=== PATIENT | female | born 1985 | race Caucasian/White ===

== ENCOUNTER 2016-03-03 19:09 | Emergency (ER) | payer MEDICAID ==
[~2016-03-03] VITALS: Ht 162.5 cm; Wt 52.2 kg
[~2016-03-03 19:09] MED LIST: AMOXIL500 MG PO; ANAPROX DS550 MG PO; ATIVAN0.5 MG PO; BACTRIM DS 8001 TA1 PO; CATAFLAM50 MG PO; CIPRO250 MG PO; CIPROFLOXACIN500 MG PO; DAYPRO600 M1 PO; DECADRON4 MG PO; DOXYCYCLINE MO100 MG PO; FLAGYL500 MG PO; FLEXERIL5 MG PO; HYDROCODONE BIT1 T11 PO; MAXARON FORTE1 CAP PO; MOTRIN600 MG PO; MOTRIN800 MG PO; NAPROSYN500 MG PO; NKHM; OVRAL-21 50 MCG1 TAB PO; PERCOCET 325 MG1 TA6 PO; PREDNICOT20 MG PO; PRENATAL1 TA1 PO; PYRIDIUM200 MG PO; REGLAN10 MG PO; ROBAXIN750 MG PO; SEPTRA DS 800 M1 TAB PO; TORADOL10 MG PO; TRAMADOL HCL50 MG PO; ULTRACET 325 MG1 TA2 PO; VICODIN 5/500 505 MG PO; VICODIN ES 7501 TAB PO; ZANTAC150 MG PO; ZITHROMAX Z PA250 MG PO; ZOFRAN ODT4 MG PO; Zofran4 MG PO
[2016-03-03 21:04] LABS: BASO % 0.8 % (0.0-1.0); EOS # 0.2 10*3/uL (0.0-0.4); EOS % 4.1 % (1.0-4.0); HEMATOCRIT 43.2 % (37.0-47.0); HEMOGLOBIN 14.7 g/dl (12.0-16.0); LYMPH # 1.7 10*3/uL (1.3-4.4); LYMPH % 31.4 % (27.0-41.0); MEAN CELL VOLUME 92.1 fl (81.0-99.0); MEAN CORPUSCULAR HGB 31.3 pg (27.0-31.0); MEAN PLATELET VOLUME 11.1 fl (9.6-12.3); MONO # 0.6 10*3/uL (0.1-1.0); MONO % 11.5 % (3.0-9.0); NEUT # 2.8 10*3/uL (2.3-7.9); NEUT % 51.8 % (47.0-73.0); PLATELET COUNT AUTOMATED 209 10*3/uL (130-400); RED BLOOD COUNT 4.69 10*6/uL (4.10-5.10); RED CELL DISTRI WIDTH 11.9 % (0-14.5); WHITE BLOOD COUNT 5.3 10*3/uL (4.8-10.8)
[2016-03-03 21:20] LABS: ALBUMIN 3.6 gm/dl (3.1-4.5); ALKALINE PHOSPHATASE 103 U/L (45-117); BILIRUBIN, TOTAL 0.4 mg/dl (0.2-1.0); BUN 10 mg/dl (7-24); CARBON DIOXIDE 29 mmol/L (21-32); CHLORIDE 106 mmol/L (98-107); EST GLOM FILT AFRICAN AMERICAN > 60 ml/min; GLUCOSE 100 mg/dL (65-99); POTASSIUM 3.9 mmol/L (3.5-5.1); SGOT/AST 11 IU/L (3-35); SGPT/ALT 20 U/L (12-78); SODIUM 143 mmol/L (136-145)
[2016-03-03 23:36] LABS: BILIRUBIN NEGATIVE (NEGATIVE); BLOOD NEGATIVE (NEGATIVE); CLARITY SL CLOUDY (CLEAR); COLOR YELLOW (YELLOW); GLUCOSE NEGATIVE (NEGATIVE); KETONE NEGATIVE (NEGATIVE); LEUKO ESTERASE NEGATIVE (NEGATIVE); NITRITE NEGATIVE (NEGATIVE); PROTEIN NEGATIVE (NEGATIVE)
[2016-03-03 23:47] LABS: BACTERIA 2+; RBC 0-2 rbc/hpf (0-2); URINE REFLEX COMMENT YES (NO)
[2016-03-04] MEDS ORDERED: LOMOTIL 0.025 M1 TA1 PO (00:04)
== END 2016-03-04 00:27 | disposition home or self-care (01) ==
LOC: ED 19:09
PROVIDERS: Emergency Medicine
DX: K52.9 Noninfective gastroenteritis and colitis, unspecified (principal); F17.200 Nicotine dependence, unspecified, uncomplicated; F41.9 Anxiety disorder, unspecified; Z98.51 Tubal ligation status

== ENCOUNTER 2016-11-06 19:13 | Emergency (ER) | payer OTHER ==
[~2016-11-06] VITALS: Ht 162.5 cm; Wt 61.2 kg
[~2016-11-06 19:13] MED LIST changes: +LOMOTIL 0.025 M1 TA1 PO
[2016-11-06] MEDS ORDERED: CEFADROXIL500 M1 PO (21:02)
[2016-11-06] MEDS ORDERED: IBUPROFEN600 MG PO (21:02)
== END 2016-11-06 21:10 | disposition home or self-care (01) ==
LOC: ED 19:13
DX: S80.12XA Contusion of left lower leg, initial encounter (principal); L08.9 Local infection of the skin and subcutaneous tissue, unspecified; F17.200 Nicotine dependence, unspecified, uncomplicated; X58.XXXA Exposure to other specified factors, initial encounter; Y93.64 Activity, baseball; Y92.89 Other specified places as the place of occurrence of the external cause; Y99.8 Other external cause status

== ENCOUNTER 2016-11-18 15:43 | Emergency (ER) | payer OTHER ==
[~2016-11-18] VITALS: Ht 162.5 cm; Wt 54.4 kg
[~2016-11-18 15:43] MED LIST changes: +CEFADROXIL500 M1 PO; +IBUPROFEN600 MG PO
[2016-11-18] MEDS ORDERED: NAPROSYN500 MG PO (15:57)
== END 2016-11-18 20:10 | disposition home or self-care (01) ==
LOC: ED 15:43
DX: S90.31XA Contusion of right foot, initial encounter (principal); F17.200 Nicotine dependence, unspecified, uncomplicated; Z98.51 Tubal ligation status; W22.03XA Walked into furniture, initial encounter; Y93.89 Activity, other specified; Y92.89 Other specified places as the place of occurrence of the external cause; Y99.8 Other external cause status

== ENCOUNTER → 2017-06-21 | Outpatient (CLI) | payer OTHER | END | disposition home or self-care (01) | LOC: US 10:30 | DX: N64.4 Mastodynia (principal) ==

== ENCOUNTER → 2017-08-08 | Outpatient (CLI) | payer OTHER | END | disposition home or self-care (01) | LOC: US 09:49 | DX: Z30.431 Encounter for routine checking of intrauterine contraceptive device (principal); N93.8 Other specified abnormal uterine and vaginal bleeding ==

== ENCOUNTER 2017-09-02 17:25 | Emergency (ER) | payer OTHER ==
[~2017-09-02] VITALS: Ht 167.6 cm; Wt 65.3 kg
--- NOTE | ~2017-09-02 | EKG ---
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
--- NOTE | ~2017-09-02 | EKG ---
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
[2017-09-02 17:59] LABS: BASO # 0.1 10*3/uL (0.0-0.1); BASO % 0.6 % (0.0-1.0); EOS # 0.3 10*3/uL (0.0-0.4); EOS % 2.5 % (1.0-4.0); HEMATOCRIT 42.9 % (37.0-47.0); HEMOGLOBIN 14.4 g/dl (12.0-16.0); LYMPH # 2.6 10*3/uL (1.3-4.4); LYMPH % 21.8 % (27.0-41.0); MEAN CELL VOLUME 92.1 fl (81.0-99.0); MEAN CORPUSCULAR HGB 30.9 pg (27.0-31.0); MEAN CORPUSCULAR HGB CONC 33.6 g/dl (33.0-37.0); MEAN PLATELET VOLUME 10.8 fl (9.6-12.3); MONO # 0.7 10*3/uL (0.1-1.0); MONO % 5.6 % (3.0-9.0); NEUT # 8.2 10*3/uL (2.3-7.9); NEUT % 69.1 % (47.0-73.0); PLATELET COUNT AUTOMATED 235 10*3/uL (130-400); RED BLOOD COUNT 4.66 10*6/uL (4.10-5.10); RED CELL DISTRI WIDTH 11.9 % (0-14.5); WHITE BLOOD COUNT 11.9 10*3/uL (4.8-10.8)
[2017-09-02 18:09] LABS: ACT PARTIAL THROMBO TIME 24.7 SECONDS (20.8-31.5); INTERNATIONAL NORM RATIO 1.1 (2.0-3.5)
[2017-09-02 18:16] LABS: ALBUMIN 3.9 gm/dl (3.1-4.5); ALKALINE PHOSPHATASE 86 U/L (45-117); BUN 12 mg/dl (7-24); CHLORIDE 105 mmol/L (98-107); CREATININE 0.64 mg/dL (0.55-1.02); POTASSIUM 4.4 mmol/L (3.5-5.1); SGOT/AST 11 IU/L (3-35); SGPT/ALT 17 U/L (12-78); SODIUM 139 mmol/L (136-145); TOTAL PROTEIN 7.3 gm/dL (6.4-8.2)
[2017-09-02 18:17] LABS: B-hCG (QUALITATIVE) NEGATIVE (NEGATIVE); TROPONIN I < 0.015 ng/ml (<0.045)
== END 2017-09-03 09:06 | disposition short-term general hospital (02) ==
LOC: ED 17:25
PROVIDERS: Emergency Medicine
DX: R55 Syncope and collapse (principal); Z98.51 Tubal ligation status

== ENCOUNTER → 2017-11-27 | Outpatient (CLI) | payer OTHER ==
[~2017-11-27] MED LIST changes: +PREDNISONE10 MG PO
[2017-12-01 18:09] LABS: DQA1*01:02 Negative (.); DQB1*06:02 Negative (.)
== END | disposition home or self-care (01) ==
LOC: LAB 11:43
PROVIDERS: Internal Medicine Critical Care Medicine
DX: G47.419 Narcolepsy without cataplexy (principal)

== ENCOUNTER 2017-12-15 16:37 | Emergency (ER) | payer OTHER ==
[~2017-12-15] VITALS: Wt 63.5 kg
[~2017-12-15 16:37] MED LIST changes: -PREDNISONE10 MG PO
[2017-12-15] MEDS ORDERED: PREDNISONE10 MG PO (16:42)
== END 2017-12-15 17:25 | disposition home or self-care (01) ==
LOC: ED 16:37
DX: M77.9 Enthesopathy, unspecified (principal); M25.572 Pain in left ankle and joints of left foot; Z98.51 Tubal ligation status

== ENCOUNTER 2018-03-26 11:34 | Emergency (ER) | payer OTHER ==
[~2018-03-26] VITALS: Ht 162.5 cm; Wt 65.8 kg
[~2018-03-26 11:34] MED LIST changes: +PREDNISONE10 MG PO
[2018-03-26] MEDS ORDERED: PREDNISONE10 MG PO (11:49)
[2018-03-26] MEDS ORDERED: CHLORZOXAZONE500 M2 PO (11:49)
== END 2018-03-26 13:06 | disposition home or self-care (01) ==
LOC: ED 11:34
DX: R07.81 Pleurodynia (principal); R03.0 Elevated blood-pressure reading, without diagnosis of hypertension; R05 Cough; F17.200 Nicotine dependence, unspecified, uncomplicated; Z79.899 Other long term (current) drug therapy

== ENCOUNTER 2019-02-12 15:44 | Emergency (ER) | payer OTHER ==
[~2019-02-12] VITALS: Ht 162.5 cm; Wt 57.2 kg
[~2019-02-12 15:44] MED LIST changes: +CHLORZOXAZONE500 M2 PO
[2019-02-12] MEDS ORDERED: IBU600 M1 PO (17:17)
== END 2019-02-12 17:36 | disposition home or self-care (01) ==
LOC: ED 15:44
DX: M54.5 Low back pain (principal); V43.52XA Car driver injured in collision with other type car in traffic accident, initial encounter; Y93.89 Activity, other specified; Y92.89 Other specified places as the place of occurrence of the external cause; Y99.8 Other external cause status

== ENCOUNTER 2019-04-17 10:53 | Emergency (ER) | payer OTHER ==
[~2019-04-17] VITALS: Ht 162.5 cm; Wt 57.6 kg
[~2019-04-17 10:53] MED LIST changes: +IBU600 M1 PO
[2019-04-17] MEDS ORDERED: IBU800 MG PO (11:16)
== END 2019-04-17 12:53 | disposition home or self-care (01) ==
LOC: ED 10:53
DX: S89.92XA Unspecified injury of left lower leg, initial encounter (principal); X50.0XXA Overexertion from strenuous movement or load, initial encounter; Y93.89 Activity, other specified; Y92.89 Other specified places as the place of occurrence of the external cause; Y99.8 Other external cause status

== ENCOUNTER 2021-08-03 19:27 | Emergency (ER) | payer OTHER ==
[~2021-08-03] VITALS: Ht 162.5 cm; Wt 59.0 kg
[~2021-08-03 19:27] MED LIST changes: +IBU800 MG PO
[2021-08-03] MEDS ORDERED: NUVIGIL250 MG PO (19:53)
[2021-08-03] MEDS ORDERED: CEPHALEXIN500 M1 PO (23:28)
== END 2021-08-03 23:52 | disposition home or self-care (01) ==
LOC: ED 19:27
DX: S86.912A Strain of unspecified muscle(s) and tendon(s) at lower leg level, left leg, initial encounter (principal); Z79.899 Other long term (current) drug therapy; Z98.51 Tubal ligation status; F17.200 Nicotine dependence, unspecified, uncomplicated; X58.XXXA Exposure to other specified factors, initial encounter; Y93.89 Activity, other specified; Y92.89 Other specified places as the place of occurrence of the external cause; Y99.8 Other external cause status

== ENCOUNTER 2022-05-10 22:33 | Emergency (ER) | payer OTHER ==
[~2022-05-10] VITALS: Ht 162.5 cm; Wt 61.2 kg
[~2022-05-10 22:33] MED LIST changes: +CEPHALEXIN500 M1 PO; +NUVIGIL250 MG PO
[2022-05-10] MEDS ORDERED: HYDROCODONE-AC1 EAC1 PO (23:54)
== END 2022-05-11 00:11 | disposition home or self-care (01) ==
LOC: ED 22:33
DX: S52.124A Nondisplaced fracture of head of right radius, initial encounter for closed fracture (principal); Z79.899 Other long term (current) drug therapy; Z98.51 Tubal ligation status; W18.39XA Other fall on same level, initial encounter; Y93.89 Activity, other specified; Y92.89 Other specified places as the place of occurrence of the external cause; Y99.8 Other external cause status

== ENCOUNTER → 2022-05-17 | Outpatient (CLI) | payer OTHER ==
[~2022-05-17] MED LIST changes: +HYDROCODONE-AC1 EAC1 PO
== END | disposition home or self-care (01) ==
LOC: CT 00:40
PROVIDERS: ATTEND Orthopaedic Surgery
DX: S52.124A Nondisplaced fracture of head of right radius, initial encounter for closed fracture (principal); X58.XXXA Exposure to other specified factors, initial encounter; Y93.89 Activity, other specified; Y92.89 Other specified places as the place of occurrence of the external cause; Y99.8 Other external cause status

== ENCOUNTER 2023-06-13 10:06 | Emergency (ER) | payer OTHER, MEDICAID ==
[~2023-06-13] VITALS: Ht 162.5 cm; Wt 52.2 kg
[2023-06-13] MEDS ORDERED: ACETAMINOPHEN 325 MG TAB PO ONE (10:30)
== END 2023-06-13 12:07 | disposition home or self-care (01) ==
LOC: ED 10:06
DX: M79.642 Pain in left hand (principal); Z98.51 Tubal ligation status

== ENCOUNTER 2023-07-02 03:42 | Emergency (ER) | payer OTHER, MEDICAID ==
[2023-07-02] MEDS ORDERED: Ondansetron Hydrochloride 4 MG TAB SL ONE (04:25)
[2023-07-02] MEDS ORDERED: Tdap Vaccine 0.5 ML SYR (Adult Vaccine) IM ONE (08:25)
== END 2023-07-02 08:50 | disposition home or self-care (01) ==
LOC: ED 03:42
DX: S01.02XA Laceration with foreign body of scalp, initial encounter (principal); Z98.51 Tubal ligation status; X58.XXXA Exposure to other specified factors, initial encounter; Y93.89 Activity, other specified; Y92.009 Unspecified place in unspecified non-institutional (private) residence as the place of occurrence of the external cause; Y99.8 Other external cause status

== ENCOUNTER 2024-08-09 02:42 | Emergency (ER) | payer SELFPAY ==
[~2024-08-09] VITALS: Ht 162.5 cm; Wt 61.2 kg
[2024-08-09] MEDS ORDERED: Cyclobenzaprine Hydrochlorid 10 MG TAB PO ONE (04:05)
[2024-08-09] MEDS ORDERED: Ketorolac Tromethamine 15 MG/ML VIAL IV ONE ×2 (04:05→05:15)
[2024-08-09 04:30] LABS: BASO # 0.1 10*3/uL (0.0-0.1); BASO % 1.1 % (0.0-1.0); EOS # 0.4 10*3/uL (0.0-0.4); EOS % 3.8 % (1.0-4.0); HEMATOCRIT 43.3 % (37.0-47.0); MEAN CELL VOLUME 94.3 fl (81.0-99.0); MEAN CORPUSCULAR HGB 31.8 pg (27.0-31.0); MEAN CORPUSCULAR HGB CONC 33.7 g/dl (33.0-37.0); MEAN PLATELET VOLUME 10.3 fl (9.6-12.3); MONO # 0.7 10*3/uL (0.1-1.0); MONO % 7.1 % (3.0-9.0); NEUT # 5.7 10*3/uL (2.3-7.9); NEUT % 54.6 % (47.0-73.0); PLATELET COUNT AUTOMATED 341 10*3/uL (130-400); RED BLOOD COUNT 4.59 10*6/uL (4.10-5.10); WHITE BLOOD COUNT 10.4 10*3/uL (4.8-10.8)
[2024-08-09 04:52] LABS: BUN 16 mg/dl (9-23); CHLORIDE 102 mmol/L (98-107)
[2024-08-09 05:05] LABS: BILIRUBIN Negative (Negative); BLOOD Negative (Negative); CLARITY Clear (Clear); COLOR Yellow (Yellow); GLUCOSE Negative (Negative); KETONE Trace (Negative); LEUKO ESTERASE Negative (Negative); NITRITE Negative (Negative); SPECIFIC GRAVITY >= 1.030 (1.001-1.030)
[2024-08-09 05:18] LABS: BACTERIA TRACE
[2024-08-09] MEDS ORDERED: CYCLOBENZAPRINE10 MG PO (05:58)
[2024-08-09] MEDS ORDERED: Acetaminophen/Hydrocodone 5 MG/325 MG TABLET PO ONE (06:00)
== END 2024-08-09 06:09 | disposition home or self-care (01) ==
LOC: ED 02:42
PROVIDERS: Emergency Medicine
DX: S29.012A Strain of muscle and tendon of back wall of thorax, initial encounter (principal); Z79.899 Other long term (current) drug therapy; Z98.51 Tubal ligation status; X58.XXXA Exposure to other specified factors, initial encounter; Y93.89 Activity, other specified; Y92.89 Other specified places as the place of occurrence of the external cause; Y99.8 Other external cause status